=== PATIENT | male | born 1985 | race Caucasian/White ===

== ENCOUNTER 2019-10-25 11:35 | Outpatient (CLI) | payer BC ==
--- NOTE | 2019-10-25 12:40 | Diagnostic Imaging Report ---
Indication: Cough Comparison: None 2 views of the chest obtained. Findings: Cardiomediastinal silhouette and pulmonary vascularity are within normal limits for age. The diaphragmatic contour is smooth and costophrenic angles are sharp. No pleural effusions are identified. The bones are unremarkable. Impression: No acute disease
== END 2019-10-25 13:35 | disposition home or self-care (01) ==
LOC: RAD 11:35
DX: Z01.818 Encounter for other preprocedural examination (principal); Z01.812 Encounter for preprocedural laboratory examination; R05 Cough
CPT/HCPCS: 71046